=== PATIENT | female | born 1935 | race Caucasian/White ===

== ENCOUNTER 2019-01-08 07:59 | Outpatient (CLI) ==
--- NOTE | 2019-01-08 13:17 | CT ---
EXAM: CT LUMBAR SPINE HISTORY: Right sacroiliac pain TECHNIQUE: CT lumbar spine without contrast. 3-mm axial sections. Coronal and sagittal reformation s. COMPARISON: None FINDINGS: Bones appear demineralized. There is no fracture identified. Mild scoliosis convex to the right. T here is mild bilateral sacroiliac joint arthropathy. Diffuse degenerative disc and facet disease is moderate to severe. 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 Neural foraminal narrowing is greater at L2/L3 and L4/L5. No paraspina l fluid collection is identified. Incidental note of atherosclerotic disease and diverticulosis of t he colon. IMPRESSION: 1. Diffuse degenerative disc and facet disease with multilevel central canal and neural foraminal na rrowing. Sacroiliac joints have mild arthropathy. Consider correlation with MRI.
== END 2019-01-08 08:00 | disposition home or self-care (01) ==
LOC: RAD 07:59
PROVIDERS: ATTEND Internal Medicine
DX: M54.31 Sciatica, right side (principal)